=== PATIENT | female | born 1950 | race Caucasian/White ===

== ENCOUNTER 2022-07-27 23:11 | Emergency (ER) | payer OTHER, MEDICAID ==
[~2022-07-27] VITALS: Ht 167.6 cm; Wt 78.0 kg
--- NOTE | 2022-07-27 23:11 | NUR ---
Patient triaged and placed in waiting room. VSS and patient appears in no acute distress at this time. Accompanied by SON, awaiting available bed, and MD notified of need for MSE.
[2022-07-27 23:20] VITALS: BP_SYST 117
--- NOTE | 2022-07-28 00:10 | NUR ---
DR LEACH EVALUATED PT AND SON
--- NOTE | 2022-07-28 00:18 | NUR ---
PT IN ROOM 6, PLACED IN GOWN AND ON MONITOR. PT C/O HEAD, NECK AND BACK PAIN WITH SOME DIZZINESS. SON STS PT IS ON XORELTO. UPDATED ONN PT STATUS
--- NOTE | 2022-07-28 02:32 | NUR ---
Patient given written and verbal discharge instructions by Dr George at the bedside and verbalizes understanding. ER MD discussed with patient the results and treatment provided. Patient in stable condition. ID arm band removed. no Rx of given. Patient educated on pain management and to follow up with PMD. Pain Scale 3/10. Opportunity for questions provided and answered. Medication side effect fact sheet provided.
[2022-07-28 02:34] VITALS: BP_SYST 112
== END 2022-07-28 02:32 | disposition home or self-care (01) ==
LOC: SED 23:11
DX: S13.4XXA Sprain of ligaments of cervical spine, initial encounter (principal); S33.5XXA Sprain of ligaments of lumbar spine, initial encounter; S09.90XA Unspecified injury of head, initial encounter; E11.9 Type 2 diabetes mellitus without complications; I10 Essential (primary) hypertension; Z79.899 Other long term (current) drug therapy; W19.XXXA Unspecified fall, initial encounter; Y93.89 Activity, other specified; Y92.89 Other specified places as the place of occurrence of the external cause; Y99.8 Other external cause status
CPT/HCPCS: 70450-TC; 72125-TC; 72192-TC; 76376; 99284